=== PATIENT | female | born 1990 ===

== ENCOUNTER 2017-12-30 08:47 | Emergency (ER) | payer MEDICAID ==
[2017-12-30 08:47] VITALS: BMI 47.9
[2017-12-30 09:04] VITALS: PULSE 80; RESP 18; TEMP 98.5; O2SAT 97
[2017-12-30 09:06] VITALS: BP 108/74
--- NOTE | 2017-12-30 09:36 | C.PDOC ---
History Of Present Illness 27 y/o female presents to the emergency room complaining of a mild sore throat for 3 days. Presents with daughter with viral syndrome. Patient denies any fevers, chills, cough, or SOB. Time Seen by Provider: 12/30/17 09:32 Chief Complaint (Nursing): Flu-like Symptoms History Per: Patient History/Exam Limitations: no limitations Onset/Duration Of Symptoms: Days (x3) Current Symptoms Are (Timing): Still Present Location Of Pain: Throat Sick Contacts (Context): Family Member(s) (daughter) Past Medical History Reviewed: Historical Data, Nursing Documentation, Vital Signs Vital Signs: Last Vital Signs Temp 98.5 F 12/30/17 09:02 Pulse 80 12/30/17 09:02 Resp 18 12/30/17 09:02 BP 108/74 12/30/17 09:02 Pulse Ox 97 12/30/17 09:36 - Medical History PMH: No Chronic Diseases Denies: HIV, Chronic Kidney Disease Surgical History: Cholecystectomy, Endoscopy, - [facility] Procedures ESOPHAGOGASTRODUODENOSCOPY [EGD] W/CLOSED BIOPSY (01/26/15) EXTRACTION OF POC, LOW CERVICAL, OPEN APPROACH (03/11/16) INJECT/INFUSE NEC (02/09/15) LAPAROSCOPIC VERTICAL (SLEEVE) GASTRECTOMY (05/08/15) OTHER ENDOSCOPY OF SM INTEST (05/08/15) OTHER SKIN & SUBQ I D (05/28/15) RESECTION OF GALLBLADDER, PERCUTANEOUS ENDOSCOPIC APPROACH (06/17/16) AMAYA NUCL MED IMAG OF GALLBLADDER USING TECHNETIUM 99M (06/17/16) Family History: States: No Known Family Hx - Social History Hx Tobacco Use: No Hx Alcohol Use: No Hx Substance Use: No - Immunization History Hx Tetanus Toxoid Vaccination: No Hx Influenza Vaccination: No Hx Pneumococcal Vaccination: No Review Of Systems Constitutional: Negative for: Fever, Chills ENT: Positive for: Throat Pain (mild). Negative for: Nose Congestion Respiratory: Negative for: Cough, Shortness of Breath Physical Exam - Physical Exam Appears: Non-toxic, No Acute Distress, Other (Obese white female) Skin: Normal Color, Warm, Dry Head: Atraumatic, Normacephalic Eye(s): bilateral: Normal Inspection, PERRL, EOMI Nose: Normal Oral Mucosa: Moist Chest: Symmetrical Cardiovascular: Rhythm Regular, No Murmur Respiratory: Normal Breath Sounds, No Rales, No Rhonchi, No Wheezing Gastrointestinal/Abdominal: Soft, No Tenderness, No Distention Extremity: Bilateral: Atraumatic, Normal Color And Temperature, Normal ROM Neurological/Psych: Oriented x3, Normal Speech ED Course And Treatment O2 Sat by Pulse Oximetry: 97 (RA) Pulse Ox Interpretation: Normal Medical Decision Making Medical Decision Making: Impression: mild viral syndrome same as daughter brought today too. Patient is stable for d/c home. Counseled regarding diagnosis and advised to take OTC cold medication as needed. Disposition Doctor Will See Patient In The: Office Counseled Patient/Family Regarding: Studies Performed, Diagnosis - Disposition Referrals: [facility] [Outside] Disposition: HOME/ ROUTINE Disposition Time: 09:36 Condition: GOOD Additional Instructions: continue OTC cold medicines, tylenol and Motrin as needed Instructions: Viral Syndrome (DC) Forms: [facility] (Greek) - POA Present On Arrival: None - Clinical Impression Clinical Impression: Viral syndrome - Scribe Statement The provider has reviewed the documentation as recorded by the Tee Harvey Provider Attestation: All medical record entries made by the Markibmichael were at my direction and personally dictated by me. I have reviewed the chart and agree that the record accurately reflects my personal performance of the history, physical exam, medical decision making, and the department course for this patient. I have also personally directed, reviewed, and agree with the discharge instructions and disposition.
== END 2017-12-30 09:41 | disposition home or self-care (01) ==
LOC: C.ER 08:47
DX: B34.9 Viral infection, unspecified (principal)